=== PATIENT | female | born 1995 | race African-American/Black ===

== ENCOUNTER 2018-03-21 07:18 | Emergency (ER) | payer MEDICAID ==
[~2018-03-21] VITALS: Ht 157.5 cm; Wt 68.0 kg
[2018-03-21 08:04] VITALS: BP 109/66
== END 2018-03-21 09:27 | disposition left against medical advice (07) ==
LOC: ER 07:18
DX: Z53.21 Procedure and treatment not carried out due to patient leaving prior to being seen by health care provider (principal)